=== PATIENT | female | born 1945 | race Caucasian/White ===

== ENCOUNTER → 2018-10-21 | Outpatient (CLI) | payer OTHER | END | disposition home or self-care (01) | LOC: LAB SHORT 16:15 → LAB 16:15 | DX: R30.0 Dysuria (principal) | CPT/HCPCS: 87086 ==

== ENCOUNTER → 2020-05-19 | Outpatient (CLI) | payer OTHER ==
[2020-05-21 07:10] LABS: HPV 16 Negative (Negative); HPV 18 Negative (Negative); HPV OTHER HR TYPES Negative (Negative)
== END | disposition home or self-care (01) ==
LOC: LAB 11:02 → LAB SHORT 11:02
PROVIDERS: Obstetrics & Gynecology
DX: Z01.419 Encounter for gynecological examination (general) (routine) without abnormal findings (principal)
CPT/HCPCS: 87624; G0123

== ENCOUNTER → 2020-06-01 | Outpatient (CLI) | payer OTHER | END | disposition home or self-care (01) | LOC: LAB 07:31 → LAB SHORT 07:31 | DX: R93.89 Abnormal findings on diagnostic imaging of other specified body structures (principal) | CPT/HCPCS: 88305 ==

== ENCOUNTER 2020-07-13 13:05 | Day surgery (SDC) | payer OTHER ==
[~2020-07-13] VITALS: Ht 165.1 cm; Wt 79.0 kg
--- NOTE | 2020-07-13 15:30 | NUR ---
07/13/20 1530 Sharmaine Schrader PT UP TO BATHROOM WITH STAND BY ASSIST TO BATHROOM. PT VOID CLEAR YELLOW URINE, PERIPAD CHANGED FOR SMALL AMOUNT OF BLOOD, PT BACK TO CHAIR, DENIES PAIN, NAUSEA. CONT TO MONITOR.
== END 2020-07-13 15:50 | disposition home or self-care (01) ==
LOC: ORSCSDS 13:05
PROVIDERS: Obstetrics & Gynecology
PROC: 0UB98ZX Excision of Uterus, Via Natural or Artificial Opening Endoscopic, Diagnostic (ICD-10-PCS; principal; 2020-07-13 14:30)
PROC: 0UDB8ZX Extraction of Endometrium, Via Natural or Artificial Opening Endoscopic, Diagnostic (ICD-10-PCS; principal; 2020-07-13 14:30)
DX: N95.0 Postmenopausal bleeding (principal); N84.0 Polyp of corpus uteri; I10 Essential (primary) hypertension
CPT/HCPCS: 88305; J1100; J2250; J2405; J2704; J3010

== ENCOUNTER → 2020-07-13 | Outpatient (CLI) | payer OTHER ==
[~2020-07-13] MED LIST: ARGININE PO; ARNICA MONTANA; BIEST/PROGESTERONE; COQ-10100 MG PO; CORTISOL MANAGER; Curcumin1 GM; DHEA PO; L-LYSINE; MAGNESIUM OXID500 MG PO; NIAC500 PO; RED YEAST RICE PO; Selenomax200 MCG PO; Vitamin D2000 UNIT PO; [UNRECOGNIZED DRUG - OTHER]; [UNRECOGNIZED DRUG - OTHER] PO; [UNRECOGNIZED DRUG - OTHER] PO; [UNRECOGNIZED DRUG - REMARK] PO; [UNRECOGNIZED DRUG - SUPPLY] PO
[2020-07-13 12:48] LABS: Source, Urine Clean Catch
[2020-07-13 13:06] LABS: Bilirubin, Urine Neg (Neg); Blood, Urine 3+ (Neg); Glucose Qualitative, Urine Neg (Neg); Ketones, Urine Neg (Neg); Leukocyte Esterase, Urine Neg (Neg); Nitrite, Urine Neg (Neg); Protein, Urine Neg (Neg); Urobilinogen, Urine NORM (Normal)
[2020-07-13 13:42] LABS: Appearance, Urine Clear (Clear); Color, Urine Yellow (P-Yellow)
[2020-07-13 13:44] LABS: White Blood Cells, Urine 0-2 /hpf (0-5)
[2020-07-13 13:46] LABS: Bacteria Few /hpf; Squamous Epithelial Cells Rare /hpf (Few)
== END ==
LOC: LAB SHORT 12:46 → LAB 12:46
PROVIDERS: Obstetrics & Gynecology
DX: Z01.812 Encounter for preprocedural laboratory examination (principal)
CPT/HCPCS: 81001

== ENCOUNTER → 2021-11-22 | Outpatient (CLI) | payer OTHER ==
[2021-11-23 09:37] LABS: Stool Occult Bld Immuno 1 Negative (NEGATIVE)
== END | disposition home or self-care (01) ==
LOC: LAB SHORT 09:45 → LAB 09:45
PROVIDERS: Family Medicine
DX: Z12.11 Encounter for screening for malignant neoplasm of colon (principal)
CPT/HCPCS: G0328

== ENCOUNTER 2022-12-19 02:14 | Emergency (ER) | payer OTHER ==
[~2022-12-19] VITALS: Ht 175.3 cm; Wt 90.7 kg
[2022-12-19] MEDS ORDERED: METOPROLOL SUCC25 MG (02:39)
== END 2022-12-19 05:57 | disposition home or self-care (01) ==
LOC: ER 02:14
DX: R04.0 Epistaxis (principal); Z79.899 Other long term (current) drug therapy
CPT/HCPCS: A9270

== ENCOUNTER 2024-03-03 23:38 | Emergency (ER) | payer OTHER ==
[~2024-03-03] VITALS: Ht 165.1 cm; Wt 83.5 kg
[~2024-03-03 23:38] MED LIST changes: +METOPROLOL SUCC25 MG
[2024-03-04] MEDS ORDERED: Tetracaine HCl/Pf 0.5% Opth Soln 4 ml LEFTEYE SCH (04:00)
[2024-03-04] MEDS ORDERED: Tobramycin 0.3% Opth Soln 5 ML LEFTEYE ONE (04:05)
[2024-03-04] MEDS ORDERED: Fluorescein Sod 1MG Opth Strips LEFTEYE SCH (04:05)
[2024-03-04] MEDS ORDERED: Artificial Tear15 ML BOTHEYES (05:26)
[2024-03-04] MEDS ORDERED: FAMC500 PO (05:26)
[2024-03-04 05:46] VITALS: BP 170/96
== END 2024-03-04 05:46 | disposition home or self-care (01) ==
LOC: ER 23:38
DX: B02.30 Zoster ocular disease, unspecified (principal); Z79.899 Other long term (current) drug therapy
CPT/HCPCS: 99283; A9270

== ENCOUNTER → 2024-10-10 | Outpatient (CLI) | payer OTHER ==
[~2024-10-10] MED LIST changes: +Artificial Tear15 ML BOTHEYES; +FAMC500 PO
[2024-10-11 07:56] LABS: Bacterial Vaginosis PCR Negative (NEGATIVE); Candida Group, PCR NOT DETECTED (NOT DETECT); Candida glabrata-krusei, PCR NOT DETECTED (NOT DETECT)
== END | disposition home or self-care (01) ==
LOC: LAB 18:07 → LAB SHORT 18:07
PROVIDERS: Family Medicine
DX: N76.0 Acute vaginitis (principal)
CPT/HCPCS: 81515